=== PATIENT | male | born 2000 | race Two or more races ===

== ENCOUNTER 2025-01-20 20:10 | Emergency (ER) | payer OTHER ==
[~2025-01-20] VITALS: Ht 182.9 cm; Wt 90.7 kg
[2025-01-20] MEDS ORDERED: TDAP [DIPH/PERTUSSIS/TET] 0.5 ML VIAL IM ONE (21:13)
[2025-01-20] MEDS: TDAP [DIPH/PERTUSSIS/TET] 0.5 ML VIAL IM ONE (21:23)
[2025-01-20 21:51] VITALS: BP 122/74; TEMP 98.2; O2SAT 98
== END 2025-01-20 21:51 | disposition home or self-care (01) ==
LOC: ER 20:13
DX: S01.112A Laceration without foreign body of left eyelid and periocular area, initial encounter (principal); R51.9 Headache, unspecified; Z90.49 Acquired absence of other specified parts of digestive tract; W19.XXXA Unspecified fall, initial encounter; Y93.89 Activity, other specified; Y92.89 Other specified places as the place of occurrence of the external cause; Y99.8 Other external cause status
CPT/HCPCS: 12011; 70450; 70486; 90715; 99284; A6403